=== PATIENT | female | born 1955 | race Caucasian/White ===

== ENCOUNTER 2017-03-16 19:28 | Emergency (ER) | payer OTHER ==
--- NOTE | ~2017-03-16 | EKG ---
PATIENT: MANDA EDMOND UNIT #: [id number] Ventricular Rate: 78 BPM Atrial Rate: 78 BPM P-R Interval: 124 ms QRS Duration: 72 ms Q-T Interval: 392 ms QTC Calculation(Bezet): 446 ms P Morton: 54 degrees Calculated R Morton: 25 degrees Calculated T Morton: 40 degrees Diagnosis Line: Normal sinus rhythm Diagnosis Line: Possible Left atrial enlargement Diagnosis Line: Nonspecific ST abnormality Diagnosis Line: Abnormal ECG Diagnosis Line: No previous ECGs available Diagnosis Line: Confirmed by DIANA FLORES MD ([id number]) on Diagnosis Line: 03/17/2017 7:09:24 PM INTERPRETING MD: SANDRA ELLINGTON
== END 2017-03-16 21:15 | disposition left against medical advice (07) ==
LOC: CED 19:28
DX: Z53.21 Procedure and treatment not carried out due to patient leaving prior to being seen by health care provider (principal)
CPT/HCPCS: 93005